=== PATIENT | female | born 1960 | race Caucasian/White ===

== ENCOUNTER → 2018-09-01 | Outpatient (REF) | LOC: ZCOL.LAB 12:42 | DX: Z01.89 Encounter for other specified special examinations (principal) ==

== ENCOUNTER → 2018-09-03 | Outpatient (REF) ==
[2018-09-03 12:50] LABS: CALCIUM 9.7 mg/dL (8.4-10.2); CREATININE, serum 0.63 (0.52-1.25); POTASSIUM 3.6 mmol/L (3.4-5.0)
== END ==
LOC: ZCOL.LAB 12:38
PROVIDERS: Family Medicine
DX: M62.81 Muscle weakness (generalized) (principal)

== ENCOUNTER → 2018-09-17 | Outpatient (REF) ==
[~2018-09-17] MED LIST: ARICEPT10 MG PO; ASPIRIN 81M81 MG/TA2 PO; BOOST HIGH PRO240 ML PO; COLACE 100100 MG/CAP PO; DULCOLAX TAB5 MG PO; MAGNESIUM500 MG PO; NAMENDA 10MG TA10 MG PO; NEURONTIN100 MG/CAP PO; REMERON 15M15 MG/TA1 PO; TYLENOL 325MG325 MG PO; ULTRAM 50MG TAB50 MG PO; VITAMIN D31000 I1 PO
[2018-09-17 15:54] LABS: COLLECTION METHOD CLEAN CATCH
[2018-09-17 16:06] LABS: MUCOUS Present /lpf; PH 5 (5-8); SQUAMOUS EPITHELIAL None Seen /hpf; URINE APPEARANCE Clear; URINE BACTERIA None Seen /hpf; URINE BILIRUBIN Negative (NEGATIVE); URINE BLOOD Negative (NEGATIVE); URINE COLOR Amber; URINE GLUCOSE Negative (NEGATIVE); URINE KETONE Negative (NEGATIVE); URINE LEUKOCYTE ESTERASE Negative (NEGATIVE); URINE NITRATE Negative (NEGATIVE); URINE PROTEIN(semi-quant) Negative (NEGATIVE); URINE RBC 0-2 /hpf; URINE UROBILINOGEN Negative (NEGATIVE)
== END ==
LOC: ZCOL.LAB 15:53
PROVIDERS: Family Medicine
DX: R63.4 Abnormal weight loss (principal)

== ENCOUNTER → 2018-09-17 | Outpatient (REF) ==
[2018-09-17 13:00] LABS: BASO % 0.3 % (0.0-2.0); EOS % 0.8 % (0-4.0); GRAN # 2.6 (1.4-6.5); GRAN % 66.9 % (42.2-75.2); HEMATOCRIT 37.1 % (37.0-47.0); HEMOGLOBIN 13.9 g/dl (12.5-16.0); LYMPH # 0.9 (1.2-3.4); LYMPH % 23.9 % (20.0-51.0); MEAN CELL VOLUME 100 fl (80.0-100.0); MEAN CORPUSCULAR HEMOGLOBIN 37 pg (27.0-31.0); MEAN CORPUSCULAR HGB CONC 38 g/dl (33.0-37.0); MEAN PLATELET VOLUME 11.7 fl (7.4-10.4); MONO # 0.3 (0.1-0.6); MONO % 7.6 % (1.7-9.3); PLATELET COUNT 139 K/mm3 (130-400); RED BLOOD COUNT 3.72 M/mm3 (4.10-5.30); REDCELL DISTRIBUTION WIDTH-CV 14.9 % (11.5-14.5)
[2018-09-17 13:11] LABS: ALBUMIN 3.7 gm/dL (3.5-5.0); BILIRUBIN,TOTAL 0.6 mg/dL (0.0-1.0); CALCIUM 9.7 mg/dL (8.4-10.2); CREATININE, serum 0.6 (0.52-1.25); POTASSIUM 3.5 mmol/L (3.4-5.0)
[2018-09-17 13:40] LABS: THYROID STIMULATING HORMONE 0.757 uIU/mL (0.465-4.680)
== END ==
LOC: ZLAB.STJ 12:53
PROVIDERS: Family Medicine
DX: R62.7 Adult failure to thrive (principal)

== ENCOUNTER 2018-09-20 17:02 | Inpatient (IN) | payer OTHER ==
[2018-09-20] VITALS (114 sets, daily range): O2SAT 78–98
[~2018-09-20] VITALS: Ht 165.1 cm; Wt 59.7 kg
[2018-09-20 17:38] LABS: ARTERIAL BLD GAS O2 SATURATION 85.4 % (92-100); ARTERIAL BLD GAS TCO2 CT 23.7; ARTERIAL BLOOD GAS BASE EXCESS 2.1 (-2-2); ARTERIAL BLOOD GAS HCO3 22.9 meq/L (22-26); ARTERIAL BLOOD GAS PCO2 26.5 mmHg (35-45); ARTERIAL BLOOD GAS pH 7.56 (7.35-7.45)
[2018-09-20 17:54] LABS: BASO % 0.2 % (0.0-2.0); GRAN # 3.8 (1.4-6.5); GRAN % 77.5 % (42.2-75.2); HEMATOCRIT 42.7 % (37.0-47.0); HEMOGLOBIN 14.5 g/dl (12.5-16.0); LYMPH # 0.9 (1.2-3.4); LYMPH % 17.6 % (20.0-51.0); MEAN CELL VOLUME 99 fl (80.0-100.0); MEAN CORPUSCULAR HEMOGLOBIN 34 pg (27.0-31.0); MEAN CORPUSCULAR HGB CONC 34 g/dl (33.0-37.0); MEAN PLATELET VOLUME 12.2 fl (7.4-10.4); MONO # 0.2 (0.1-0.6); MONO % 4.3 % (1.7-9.3); PLATELET COUNT 121 K/mm3 (130-400); RED BLOOD COUNT 4.31 M/mm3 (4.10-5.30); REDCELL DISTRIBUTION WIDTH-CV 14.6 % (11.5-14.5)
[2018-09-20 18:01] LABS: COLLECTION METHOD CATHETER
[2018-09-20 18:07] LABS: INR 1.1 (0.8-3.0); PROTHROMBIN TIME 12.7 SECONDS (9.7-12.8)
[2018-09-20 18:09] LABS: ALANINE AMINOTRANSFERASE 12 U/L (9-52); ALBUMIN 3.8 gm/dL (3.5-5.0); ALKALINE PHOSPHATASE 111 U/L (50-136); ANION GAP 11 mmol/L (7-16); AST,SGOT 35 U/L (15-37); BILIRUBIN,TOTAL 1.1 mg/dL (0.0-1.0); BLOOD UREA NITROGEN 30 mg/dL (7-17); CALCIUM 10.1 mg/dL (8.4-10.2); CARBON DIOXIDE 26 mmol/L (22-30); CHLORIDE 114 mmol/L (98-107); CREATININE, serum 0.78 (0.52-1.25); GLUCOSE 127 mg/dL (74-106); LIPASE 42 U/L (23-300); POTASSIUM 3.6 mmol/L (3.4-5.0); SODIUM 150 mmol/L (137-145); TOTAL PROTEIN 8.4 gm/dL (6.4-8.2)
[2018-09-20 18:10] LABS: PARTIAL THROMBOPLASTIN TIME 36.6 SECONDS (26.0-37.0)
[2018-09-20 18:12] LABS: MUCOUS Present /lpf; PH 5 (5-8); SQUAMOUS EPITHELIAL 0-2 /hpf; URINE APPEARANCE Hazy; URINE BACTERIA None Seen /hpf; URINE BILIRUBIN Negative (NEGATIVE); URINE BLOOD Negative (NEGATIVE); URINE COLOR Amber; URINE GLUCOSE Negative (NEGATIVE); URINE KETONE Negative (NEGATIVE); URINE LEUKOCYTE ESTERASE Negative (NEGATIVE); URINE NITRATE Negative (NEGATIVE); URINE PROTEIN(semi-quant) Negative (NEGATIVE); URINE RBC 0-2 /hpf; URINE UROBILINOGEN Negative (NEGATIVE)
[2018-09-20 18:13] LABS: CREATINE KINASE < 20 U/L (30-135); LACTIC ACID 3.8 mmol/L (0.4-2.0)
[2018-09-20 18:27] LABS: TROPONIN-I < 0.012 ng/mL (0.000-0.035)
[2018-09-20 18:44] LABS: C-REACTIVE PROTEIN 20.7 mg/dL (0.0-0.9)
--- NOTE | 2018-09-20 19:43 | NUR ---
ANDREW Herrera in the ED calls report at this time. Patient will be brought over after CT scan results.
[2018-09-20] MEDS ORDERED: MAGNESIUM500 MG PO (19:56)
[2018-09-20] MEDS ORDERED: ULTRAM 50MG TAB50 MG PO (19:57)
[2018-09-20] MEDS ORDERED: ASPIRIN 81M81 MG/TA2 PO (19:57)
[2018-09-20] MEDS ORDERED: NAMENDA 10MG TA10 MG PO (19:57)
--- NOTE | 2018-09-20 20:13 | NUR ---
Patient arrives at this time via stretcher with transport vent. transferred to unit bed via slide. attached to monitoring equipment. Assessment complete. Reveals clear upper lobes with fine crackles in the bases as well as being diminished. There is a unstagable pressure ulcer on her coccyx. It is black with some peeling skin. The surrounding tissue is blanchable. There are also 3 dime sized holes in the coccygeal area below the unstagable ulcer stages are stage 2/3. It is unclear due to their small size. Patient is very pale looking and skin is dry. Urine is a dark daniella color. Patient has a large impacted stool that this nurse removed without incident. Cleaned with cleansing wipes. Positioned patient in bed and provided blankets for comfort. No further needs at this time. Family will be updated on status.
--- NOTE | 2018-09-20 21:35 | NUR ---
Time out performed at this time with Dr. Hernandez and Desmond, RT. 2137- Bronchoscopy begins at this time. Patient on 3min vital signs. 2138- Veceronium given 2139 - Bronch scope inserted into patient. vitals remain stable, heart rate is elevated. 2144 - Bronch ends at this time and scope is removed without incident.
--- NOTE | 2018-09-20 21:49 | NUR ---
Time out performed with this nurse and Dr Hernandez. 2149 - propofol given. patient continues on 3min vital signs. 2150 - Insertion of central line catheter procedure begins. 2199 - procedure ends, unsuccessful in insertion of subclavian line. 2201 - Dr Marquez notified by Dr Hernandez to come and try a central line.
--- NOTE | 2018-09-20 22:40 | NUR ---
Time out performed with this nurse and Dr. Marquez. 2243 - procedure begins at this time to attempt left femoral line . Patient on 3min vital signs. 2300 - unsuccessful at left femoral site, moves to right femoral 2313 - right femoral line complete at this time. Patient tolerated well, vitals remain stable.
[2018-09-21] VITALS (779 sets, daily range): BP systolic 76–122; BP diastolic 53–78; PULSE 81–121; TEMP 97.4–97.9; O2SAT 83–100
--- NOTE | 2018-09-21 | NUR ---
Assessment complete at this time. Patient resting comfortably on the vent. She still is only resposive to pain. Assessment remains the same as previous. Vitals are becoming hypotensive slowly. Will closely monitor vital signs. No further needs at this time. Family has moved out to the waiting room. Will continue to monitor. Call light within reach.
[2018-09-21 00:17] LABS: ARTERIAL BLD GAS O2 SATURATION 95.1 % (92-100); ARTERIAL BLD GAS TCO2 CT 21.6; ARTERIAL BLOOD GAS BASE EXCESS -3.5 (-2-2); ARTERIAL BLOOD GAS HCO3 20.6 meq/L (22-26); ARTERIAL BLOOD GAS PCO2 34.6 mmHg (35-45); ARTERIAL BLOOD GAS pH 7.39 (7.35-7.45)
[2018-09-21 00:32] LABS: ANION GAP 8 mmol/L (7-16); BLOOD UREA NITROGEN 27 mg/dL (7-17); CARBON DIOXIDE 22 mmol/L (22-30); CHLORIDE 119 mmol/L (98-107); CREATININE, serum 0.66 (0.52-1.25); GLUCOSE 137 mg/dL (74-106); SODIUM 150 mmol/L (137-145)
[2018-09-21 00:44] LABS: TROPONIN-I 3 HR POST INITIAL < 0.012 ng/mL (0.000-0.034)
--- NOTE | 2018-09-21 04:00 | NUR ---
Assessment complete. No changes from previous exam. Patient remains responsive to pain. Patient's BP improves with fluids. She appears comfortable. Will continue to closely watch pressures. No further needs at this time.
[2018-09-21 05:33] LABS: MEAN CELL VOLUME 99 fl (80.0-100.0); MEAN CORPUSCULAR HGB CONC 31 g/dl (33.0-37.0); MEAN PLATELET VOLUME 13.1 fl (7.4-10.4); PLATELET COUNT 71 K/mm3 (130-400); RED BLOOD COUNT 3.59 M/mm3 (4.10-5.30); REDCELL DISTRIBUTION WIDTH-CV 14.6 % (11.5-14.5)
[2018-09-21 05:42] LABS: HEMATOCRIT 35.6 % (37.0-47.0); HEMOGLOBIN 10.9 g/dl (12.5-16.0); MEAN CORPUSCULAR HEMOGLOBIN 30 pg (27.0-31.0)
[2018-09-21 05:49] LABS: ALBUMIN 2.3 gm/dL (3.5-5.0); BILIRUBIN,TOTAL 1.2 mg/dL (0.0-1.0); CALCIUM 8.3 mg/dL (8.4-10.2); CREATININE, serum 0.59 (0.52-1.25); MAGNESIUM 1.9 mg/dL (1.6-2.3); PHOSPHOROUS 3.3 mg/dL (2.5-4.5); TOTAL PROTEIN 5.4 gm/dL (6.4-8.2)
[2018-09-21 05:57] LABS: POTASSIUM 2.9 mmol/L (3.4-5.0)
[2018-09-21 06:02] LABS: ARTERIAL BLD GAS O2 SATURATION 98.9 % (92-100); ARTERIAL BLD GAS TCO2 CT 19.8; ARTERIAL BLOOD GAS HCO3 18.9 meq/L (22-26); ARTERIAL BLOOD GAS PCO2 30.9 mmHg (35-45)
[2018-09-21 06:03] LABS: ARTERIAL BLOOD GAS PO2 317.3 mmHg (80-100)
--- NOTE | 2018-09-21 06:24 | NUR ---
PT NOT ON SMART CARE NOT INTUBATED FOR 24 HOURS
[2018-09-21 07:10] LABS: BAND 70 % (0-10); LYMPHOCYTE 20 % (20.0-51.0); METAMYELOCYTE 2 % (0-0); NEUTROPHILS 4 % (42.0-75.2)
[2018-09-21 07:11] LABS: PLATELET ESTIMATE DECREASED (NORMAL); ROULEAUX 1+
--- NOTE | 2018-09-21 07:40 | NUR ---
Bedside report given to ANDREW Meléndez. All lines and medications reviewed. Plan of care discussed. Transfer of care at this time.
--- NOTE | 2018-09-21 09:24 | NUR ---
Admission assessment complete at this time. Plan of care reviewed with family. vitals stable. Pt shows no signs of pain or discomfort. Bed in low position, Will continue to monitor.
[2018-09-21] MEDS ORDERED: VITAMIN D31000 I1 PO (10:14)
[2018-09-21] MEDS ORDERED: ARICEPT10 MG PO (10:16)
[2018-09-21] MEDS ORDERED: COLACE 100100 MG/CAP PO (10:16)
[2018-09-21] MEDS ORDERED: BOOST HIGH PRO240 ML PO (10:17)
[2018-09-21] MEDS ORDERED: NEURONTIN100 MG/CAP PO (10:18)
[2018-09-21] MEDS ORDERED: REMERON 15M15 MG/TA1 PO (10:18)
[2018-09-21] MEDS ORDERED: TYLENOL 325MG325 MG PO (10:19)
[2018-09-21] MEDS ORDERED: DULCOLAX TAB5 MG PO (10:20)
[2018-09-21 11:08] LABS: HEMOGLOBIN 10.2 g/dl (12.5-16.0); MEAN CELL VOLUME 99 fl (80.0-100.0); MEAN CORPUSCULAR HEMOGLOBIN 30 pg (27.0-31.0); MEAN CORPUSCULAR HGB CONC 31 g/dl (33.0-37.0); MEAN PLATELET VOLUME 13.3 fl (7.4-10.4); PLATELET COUNT 62 K/mm3 (130-400); RED BLOOD COUNT 3.36 M/mm3 (4.10-5.30); REDCELL DISTRIBUTION WIDTH-CV 14.7 % (11.5-14.5)
[2018-09-21 11:17] LABS: HEMATOCRIT 33.1 % (37.0-47.0)
[2018-09-21 11:23] LABS: CALCIUM 8.1 mg/dL (8.4-10.2); CREATININE, serum 0.55 (0.52-1.25); MAGNESIUM 1.8 mg/dL (1.6-2.3); POTASSIUM 3.7 mmol/L (3.4-5.0)
--- NOTE | 2018-09-21 12:00 | NUR ---
Shift reassessment complete at this time. No changes from previous assessment. Vitals stable. Pt arouses to voice and movement. Unable to follow direction or track with eyes. Pt appears to be pain free with no signs of pain noted. Will continue to monitor.
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
--- NOTE | 2018-09-21 16:00 | NUR ---
Shift reassessment complete at this time. No changes from previous assessment. Vitals stable. No signs of pain or discomfort noted. Pt awakes to voice and movement, however, unable to follow commands or direction. Will continue to monitor. Bed in low position, call light within reach, bed alarm on.
--- NOTE | 2018-09-21 17:00 | NUR ---
No change in sedation made for sedation vacation. Pt awakens to voice at current lowest possible setting of sedation. Will continue to monitor.
[2018-09-21 17:05] LABS: ARTERIAL BLD GAS O2 SATURATION 95.9 % (92-100); ARTERIAL BLD GAS TCO2 CT 15.9; ARTERIAL BLOOD GAS BASE EXCESS -7.1 (-2-2); ARTERIAL BLOOD GAS HCO3 15.3 meq/L (22-26); ARTERIAL BLOOD GAS PCO2 22.4 mmHg (35-45); ARTERIAL BLOOD GAS PO2 84.9 mmHg (80-100); ARTERIAL BLOOD GAS pH 7.45 (7.35-7.45)
--- NOTE | 2018-09-21 19:32 | NUR ---
Bedside report given to ANDREW Remy.
[2018-09-21 22:05] LABS: CALCIUM 8.4 mg/dL (8.4-10.2); CREATININE, serum 0.51 (0.52-1.25)
[2018-09-21 22:18] LABS: POTASSIUM 2.7 mmol/L (3.4-5.0)
[2018-09-22] VITALS (697 sets, daily range): BP systolic 100–114; BP diastolic 62–73; PULSE 92–109; TEMP 97.6–98.7; O2SAT 94–100
--- NOTE | 2018-09-22 02:55 | NUR ---
Pt resting in bed, has not opened eyes, withdraws and grimaces to pain with all four extremeties. Despite pt unresposiveness, HR and and RR continues to increase, Staff has been in communication with eICU regarding, potential pain, lovenox admin, restrain orders, CVP lvl and updates re labs. Orders recieved. K noted to be 2.7 and orders placed to replace per protocol. Pt to recieved 80mEqs. Will recheck after last dose and continue to monitor and update, providers as needed.
--- NOTE | 2018-09-22 03:00 | NUR ---
Due pt unresponsiveness sedation vaction done at this time, eICU updated fro HR and RR despite pain med, but agrees that baseline should be established. Will continue to monitor pt and update providers as needed.
[2018-09-22 05:22] LABS: ARTERIAL BLD GAS O2 SATURATION 97.1 % (92-100); ARTERIAL BLD GAS TCO2 CT 16.5; ARTERIAL BLOOD GAS BASE EXCESS -5.8 (-2-2); ARTERIAL BLOOD GAS HCO3 15.9 meq/L (22-26); ARTERIAL BLOOD GAS PO2 100.8 mmHg (80-100)
[2018-09-22 05:25] LABS: ARTERIAL BLOOD GAS PCO2 20.7 mmHg (35-45)
[2018-09-22 06:05] LABS: HEMOGLOBIN 10.3 g/dl (12.5-16.0); MEAN CELL VOLUME 96 fl (80.0-100.0); MEAN CORPUSCULAR HEMOGLOBIN 30 pg (27.0-31.0); MEAN CORPUSCULAR HGB CONC 32 g/dl (33.0-37.0); MEAN PLATELET VOLUME 12.9 fl (7.4-10.4); PLATELET COUNT 81 K/mm3 (130-400); RED BLOOD COUNT 3.41 M/mm3 (4.10-5.30); REDCELL DISTRIBUTION WIDTH-CV 14.6 % (11.5-14.5)
[2018-09-22 06:06] LABS: HEMATOCRIT 32.6 % (37.0-47.0)
[2018-09-22 06:16] LABS: ALBUMIN 2.3 gm/dL (3.5-5.0); BILIRUBIN,TOTAL 0.9 mg/dL (0.0-1.0); CALCIUM 8.6 mg/dL (8.4-10.2); CREATININE, serum 0.52 (0.52-1.25); MAGNESIUM 1.9 mg/dL (1.6-2.3); POTASSIUM 3.5 mmol/L (3.4-5.0); TOTAL PROTEIN 5.6 gm/dL (6.4-8.2)
--- NOTE | 2018-09-22 06:42 | NUR ---
PT NOT ON SMART CARE DUE TO HEART RATE BEING HIGH. WILL NOT BE EXTUBATED AND IS ON DOCUMENTED VENT SETTINGS.
[2018-09-22 07:12] LABS: BAND 16 % (0-10); LYMPHOCYTE 7 % (20.0-51.0); NEUTROPHILS 74 % (42.0-75.2); PLATELET ESTIMATE DECREASED (NORMAL)
--- NOTE | 2018-09-22 08:00 | NUR ---
Shift assessment complete at this time. Unable to review plan of care with Pt r/t intubation et sedation, family currently not present. Vitals stable. Pt unable to follow commands or open eyes to voice. Responds to physical stimuli and grimces when Pt's name is called. Pt is currently over-breathing the ventilator. No signs of pain or discomfort noted. Will continue to monitor.
--- NOTE | 2018-09-22 12:00 | NUR ---
Shift reassessment completed at this time. No changes from previous assessment. Vitals stable at this time. Pt still not responding to verbal stimuli and only responds to physical stimulation. Pt is still overbreathing the ventilator. Pt no longer appears to be in pain after previous administration of PRN Fentanyl. Will continue to monitor.
--- NOTE | 2018-09-22 16:00 | NUR ---
Shift reassessment complete at this time. No changes from previous assessment noted. Pt unable to follow commands on ventilator and opens eyes to movement or painful stimuli. Pt overbreathing ventilator. Vitals stable. Fentanyl PRN push administered for CPOT signs of pain. See EMAR for documentation. Bed in low position. Christian Tompkins at bedside with Pt. Will continue to monitor.
--- NOTE | 2018-09-22 19:00 | NUR ---
Bedside report received from Medhat MROALES. Pts son entered the room half way through report. Denies any questions.
[2018-09-22 19:02] LABS: CALCIUM 8.3 mg/dL (8.4-10.2); CREATININE, serum 0.5 (0.52-1.25); POTASSIUM 3.1 mmol/L (3.4-5.0)
--- NOTE | 2018-09-22 19:19 | NUR ---
Bedside report given to ANDREW Craven.
--- NOTE | 2018-09-22 20:30 | NUR ---
This nurse and pts son, Turner, at bedside were discussing pt care when family member noted pts right eye open. Pt would not follow commands at this time, and did not open left eye. No pt eye contact was made with family member or nurse at this time. Pt was noted shortly following to close eyes. Son grabbed pts right hand and asked the pt to squeeze. Son reported pt slightly squeezed hand in response.
--- NOTE | 2018-09-22 23:00 | NUR ---
Pt CVP was below the recommendation per Dr. Hernandez. 500mL bolus of NS provided with improvement in CVP readings as a result. Lung sounds remain CTA.
[2018-09-23] VITALS (598 sets, daily range): BP systolic 109–135; BP diastolic 68–84; PULSE 80–96; TEMP 97.6–98.9; O2SAT 93–100
--- NOTE | 2018-09-23 00:30 | NUR ---
Bilateral heel protectors applied to pts feet at this time. Slight bilateral foot drop noted.
--- NOTE | 2018-09-23 01:45 | NUR ---
Residuals checked from OG tube tube feedings. >250 noted, tube feeds turned off at this time per dietary order.
--- NOTE | 2018-09-23 04:00 | NUR ---
Pt CVP was 6 at prior assessment, 500mL NS bolus provided with increase in CVP results >8. Pt lung sounds remain clear. Residual from prior tube feed residuals are at 120. Tube feeds returned to 46mL/hr.
[2018-09-23 04:40] LABS: ARTERIAL BLD GAS O2 SATURATION 96.7 % (92-100); ARTERIAL BLOOD GAS BASE EXCESS -4.7 (-2-2); ARTERIAL BLOOD GAS HCO3 17.3 meq/L (22-26); ARTERIAL BLOOD GAS PCO2 23.3 mmHg (35-45); ARTERIAL BLOOD GAS PO2 95.3 mmHg (80-100); ARTERIAL BLOOD GAS pH 7.49 (7.35-7.45)
--- NOTE | 2018-09-23 04:57 | NUR ---
PT NOT PUT ON SMART CARE DUE TO HAVING A BRONCH TODAY AT 0830 AND WILL STILL BE INTUBATED AT THE TIME OF THE PROCEDURE. PT IS STABLE AND NO DISTRSS NOTED AT THIS TIME. [facility] CALLED WITH ABG RESULTS WILL BE NOTIFIED IF ANY CHANGES ARE WANTING TO BE MADE.
[2018-09-23 05:04] LABS: MEAN CELL VOLUME 97 fl (80.0-100.0); MEAN CORPUSCULAR HGB CONC 32 g/dl (33.0-37.0); MEAN PLATELET VOLUME 12.5 fl (7.4-10.4); PLATELET COUNT 77 K/mm3 (130-400); RED BLOOD COUNT 2.97 M/mm3 (4.10-5.30)
[2018-09-23 05:16] LABS: HEMATOCRIT 28.7 % (37.0-47.0); HEMOGLOBIN 9.1 g/dl (12.5-16.0); MEAN CORPUSCULAR HEMOGLOBIN 31 pg (27.0-31.0)
[2018-09-23 05:17] LABS: ALBUMIN 2.1 gm/dL (3.5-5.0); BILIRUBIN,TOTAL 0.7 mg/dL (0.0-1.0); CALCIUM 8.4 mg/dL (8.4-10.2); CREATININE, serum 0.42 (0.52-1.25); MAGNESIUM 2.1 mg/dL (1.6-2.3); PHOSPHOROUS 1.6 mg/dL (2.5-4.5); POTASSIUM 3.5 mmol/L (3.4-5.0); TOTAL PROTEIN 5.2 gm/dL (6.4-8.2)
[2018-09-23 06:05] LABS: BAND 35 % (0-10); LYMPHOCYTE 4 % (20.0-51.0); NEUTROPHILS 53 % (42.0-75.2); PLATELET ESTIMATE DECREASED (NORMAL)
[2018-09-23 06:06] LABS: BURR CELLS 2+; HYPOCHROMIA 1+
[2018-09-23 06:07] LABS: OVALOCYTES 1+
--- NOTE | 2018-09-23 07:00 | NUR ---
Bedside report provided to Lisa Pineda RN. Pt resting in bed at this time.
--- NOTE | 2018-09-23 07:05 | NUR ---
Bedside report received from ANDREW Craven.
--- NOTE | 2018-09-23 08:05 | NUR ---
Assessment complete, patient does not awaken or follow commands, does open mouth when doing oral care. AM care complete, bilateral wrist restraints in place.
--- NOTE | 2018-09-23 08:35 | NUR ---
Dr. Hernandez here for bronch at bedside, orders to give 50 mcg IV Fentanyl prior to bronch. Bronch team here.
--- NOTE | 2018-09-23 09:45 | NUR ---
Dr. Coy here to speak with son, Turner.
--- NOTE | 2018-09-23 13:30 | NUR ---
Patient tachypneic on ventilator, IV fentanyl push given as ordered.
--- NOTE | 2018-09-23 17:00 | NUR ---
Sedation Vacation- Patient not on any sedation gtts.
--- NOTE | 2018-09-23 17:29 | NUR ---
PT PLACED ON SMART CARE AT 1134 PS 10 PEEP+5. AT 1416 VENT SAID CONSIDER SEPERATION. PT WENT UNTIL THIS TIME. AT THIS TIME RR WAS INCREASED AND PT LOOKED LABORED. VITAL SIGNS STABLE. DR. ALONSO ORDERED THE TRIAL
--- NOTE | 2018-09-23 19:10 | NUR ---
Pt report received from Lisa Pineda RN. Pt resting in bed. Oncoming and off going nurses talking with pt son at this time. Left foot twitching noted. Pt son holding pts right hand with reported twitching and intermittent movements of contraction around family members hand. Upper chest movements consistent with tremors noted for a few seconds following assessment of pts bottom.
--- NOTE | 2018-09-23 19:13 | NUR ---
Bedside report given to ANDREW Craven.
[2018-09-24] VITALS (1094 sets, daily range): BP systolic 118–137; BP diastolic 69–91; PULSE 74–88; TEMP 97.8–99.1; O2SAT 87–100
--- NOTE | 2018-09-24 01:00 | NUR ---
Complete bed bath with lower extremity lotion provided to patient with linen change. Slight ROM to lower extremities noted with increased facial grimacing noted with movement on the left leg. Pt was noted to open one eye to physical stimulation. No eye contact was made with staff and continuation of not following any commands.
--- NOTE | 2018-09-24 04:00 | NUR ---
During assessment pts name was verbalized from the nurse prior to physical stimulation. Pt opened left eye at this time. Pt did not follow any commands or make any eye contact. Leftward gaze noted to the open eye. Pt only kept eye open for a matter of a couple of seconds and then closed eyes tight.
[2018-09-24 05:54] LABS: MEAN CELL VOLUME 97 fl (80.0-100.0); MEAN CORPUSCULAR HGB CONC 32 g/dl (33.0-37.0); MEAN PLATELET VOLUME 12.6 fl (7.4-10.4); PLATELET COUNT 74 K/mm3 (130-400); RED BLOOD COUNT 3.04 M/mm3 (4.10-5.30); REDCELL DISTRIBUTION WIDTH-CV 15.1 % (11.5-14.5)
[2018-09-24 05:56] LABS: HEMATOCRIT 29.5 % (37.0-47.0); HEMOGLOBIN 9.3 g/dl (12.5-16.0); MEAN CORPUSCULAR HEMOGLOBIN 31 pg (27.0-31.0)
[2018-09-24 06:08] LABS: ALBUMIN 2.1 gm/dL (3.5-5.0); BILIRUBIN,TOTAL 0.5 mg/dL (0.0-1.0); CALCIUM 8.4 mg/dL (8.4-10.2); CREATININE, serum 0.42 (0.52-1.25); MAGNESIUM 2.1 mg/dL (1.6-2.3); PHOSPHOROUS 2.9 mg/dL (2.5-4.5); POTASSIUM 3.3 mmol/L (3.4-5.0); TOTAL PROTEIN 5.2 gm/dL (6.4-8.2)
[2018-09-24 06:36] LABS: ARTERIAL BLD GAS O2 SATURATION 97.4 % (92-100); ARTERIAL BLOOD GAS BASE EXCESS -3.6 (-2-2); ARTERIAL BLOOD GAS HCO3 18.3 meq/L (22-26); ARTERIAL BLOOD GAS PCO2 22.2 mmHg (35-45); ARTERIAL BLOOD GAS pH 7.54 (7.35-7.45)
[2018-09-24 06:37] LABS: BAND 3 % (0-10); LYMPHOCYTE 8 % (20.0-51.0); NEUTROPHILS 86 % (42.0-75.2); NUCLEATED RED BLOOD CELL 2 (0-6); PLATELET ESTIMATE DECREASED (NORMAL)
--- NOTE | 2018-09-24 07:10 | NUR ---
Report recieved from Merissa MORALES. Patient non verbal, no arousal except from pain. Medications verified.
--- NOTE | 2018-09-24 07:10 | NUR ---
Report provided to Joann Garner RN.
--- NOTE | 2018-09-24 15:49 | NUR ---
Asks RN to be put back on the vent, "I feel nervous" VSS. Spoke with patient at length, has a lot of anxiety about his breathing and the trach. Also states not sleeping. Will sleep with doctors about meds for sleep and restarting Prozac since ok'd for oral intake.
--- NOTE | 2018-09-24 16:14 | NUR ---
CL from right femoral removed by Itz SINGH. Area cleanse prior with cholrprep and alcohol. Sutures removed and pressure held times 3 minutes. No bleeding noted. Pressure dressing applied. Patient tolerated procedure well.
[2018-09-24 16:32] LABS: ALK PHOS ISOENZYME XXX; ALK PHOS ISOENZYME - TOTAL XXX
--- NOTE | 2018-09-24 19:10 | NUR ---
Bedside report given to Anthony MORALES. Daughter in law at bedside and participates in report. Patient repositioned and pericare done. Dressings assessed with oncoming nurse.
--- NOTE | 2018-09-24 20:10 | NUR ---
Patient assessment completed and charted at this time, please see documentation for details. Patient tolerating ventilator well at this time, minimal interaction with nurse. Family at bedside, no questions at this time. Will continue to monitor.
[2018-09-25] VITALS (586 sets, daily range): BP systolic 93–160; BP diastolic 69–104; PULSE 86–128; TEMP 97.9–99; O2SAT 91–100
[2018-09-25 05:32] LABS: MEAN CELL VOLUME 95 fl (80.0-100.0); MEAN CORPUSCULAR HGB CONC 32 g/dl (33.0-37.0); MEAN PLATELET VOLUME 11.3 fl (7.4-10.4); PLATELET COUNT 61 K/mm3 (130-400); RED BLOOD COUNT 3.08 M/mm3 (4.10-5.30); REDCELL DISTRIBUTION WIDTH-CV 14.8 % (11.5-14.5)
[2018-09-25 05:33] LABS: HEMATOCRIT 29.3 % (37.0-47.0); HEMOGLOBIN 9.3 g/dl (12.5-16.0); MEAN CORPUSCULAR HEMOGLOBIN 30 pg (27.0-31.0)
[2018-09-25 05:44] LABS: ALBUMIN 2.2 gm/dL (3.5-5.0); BILIRUBIN,TOTAL 0.4 mg/dL (0.0-1.0); CALCIUM 8.5 mg/dL (8.4-10.2); CREATININE, serum 0.42 (0.52-1.25); PHOSPHOROUS 3.2 mg/dL (2.5-4.5); POTASSIUM 3.3 mmol/L (3.4-5.0); TOTAL PROTEIN 5.2 gm/dL (6.4-8.2)
[2018-09-25 06:01] LABS: ARTERIAL BLD GAS O2 SATURATION 97.5 % (92-100); ARTERIAL BLD GAS TCO2 CT 16.3; ARTERIAL BLOOD GAS BASE EXCESS -5.6 (-2-2); ARTERIAL BLOOD GAS HCO3 15.7 meq/L (22-26); ARTERIAL BLOOD GAS PO2 117.6 mmHg (80-100); ARTERIAL BLOOD GAS pH 7.51 (7.35-7.45)
[2018-09-25 06:07] LABS: BAND 15 % (0-10); EOSINOPHIL 3 % (0-4); HYPOCHROMIA 1+; LYMPHOCYTE 13 % (20.0-51.0); METAMYELOCYTE 6 % (0-0); NEUTROPHILS 58 % (42.0-75.2); NUCLEATED RED BLOOD CELL 1 (0-6); PLATELET ESTIMATE DECREASED (NORMAL)
[2018-09-25 06:09] LABS: OVALOCYTES 1+; TEAR DROP CELLS 1+
[2018-09-25 06:11] LABS: SCHISTOCYTES 1+
--- NOTE | 2018-09-25 07:25 | NUR ---
Bedside report received from ANDREW Cruz.
[2018-09-25 08:27] LABS: PATHOLOGY DIFF REVIEW OK
--- NOTE | 2018-09-25 10:50 | NUR ---
Patient tachycardic, tachypneic and hypertensive. Patient appears uncomfortable. Versed gtt initiated.
--- NOTE | 2018-09-25 12:07 | NUR ---
US tech at bedside for abdominal US.
--- NOTE | 2018-09-25 13:25 | NUR ---
Family mtg with Nevaeh Sanchez RN (palliative care) and Kimberly social work with DIL. Biju
[2018-09-25 13:45] LABS: IRON,SERUM 32 ug/dL (35-150)
[2018-09-25 13:54] LABS: TOTAL IRON BINDING CAPACITY 174 ug/dL (265-497)
[2018-09-25 14:21] LABS: FERRITIN 695 ng/mL (11-264)
--- NOTE | 2018-09-25 14:47 | NUR ---
Patient remains tachycardic, respirations 30, fentanyl gtt initiated for patient comfort.
--- NOTE | 2018-09-25 15:02 | NUR ---
Long meeting with daughter in law to discuss goals of care for Esther. Family is under tremendous stress--financial/career/education/family conflict/ care of children. DIL states she will talk with Turner alone first as she is seeing that Esther may or may not make a recovery and the demands that this will place on all of them. Support provided to Michelle about the multiple stressors, recognition of desire for the best outcome and yet realization that this may not occur. Will plan to meet again on Friday.
--- NOTE | 2018-09-25 15:14 | NUR ---
MIKE, MIKE student, nurse, pallative care nurse, doctor, and patient's daughter in law, Chalino, met to discuss care goals for patient. After long discussion and hearing from the doctor, Chalino reports she needs to speak with Turner, patient's son, about the possibility of patient not making a recovery. Chalino would also like to see the results of the biopsy and other tests that have been done. MIKE will follow up with Chalino and Turner on Friday.
--- NOTE | 2018-09-25 15:48 | NUR ---
SW student faxed updates to [facility]eles[facility] at [facility].
--- NOTE | 2018-09-25 16:00 | NUR ---
Patient opens eyes but not on command, does not follow commands, Biju, DIL at bedside. Patient repositioned, incontinent of bowel with each turn.
[2018-09-25 17:31] LABS: CALCIUM 8.6 mg/dL (8.4-10.2); CREATININE, serum 0.43 (0.52-1.25); POTASSIUM 3.5 mmol/L (3.4-5.0)
--- NOTE | 2018-09-25 19:36 | NUR ---
Bedside report given to ANDREW Wallis. Incontinent care given, dressing changed. DIL at bedside.
--- NOTE | 2018-09-25 19:40 | NUR ---
Bedside report received from ANDREW Gonzalez. Incontinence care provided. All lines and medications reviewed. Transfer of care at this time.
--- NOTE | 2018-09-25 20:00 | NUR ---
Assessment complete. Patient appears to be resting comfortably on the vent. No signs of distress. Patient's daughter in law at the bedside. Patient has pitting edema in her upper and lower extremities. She is tachycardic with normal heart sounds. Patient is having a moderate to small amount of productive sputum when suctioned. Patient scrunches up face when being suctioned and opens her eyes intermittently and when she is moved. Patient does not appear to be in any pain. Will continue to monitor. Call light within reach.
[2018-09-25 22:28] LABS: FOLATE (FOLIC ACID) 8.1 ng/mL (7.0-31.4)
[2018-09-26] VITALS (927 sets, daily range): BP systolic 94–129; BP diastolic 61–82; PULSE 92–100; TEMP 97.3–98.7; O2SAT 49–100
--- NOTE | 2018-09-26 | NUR ---
Patient resting in bed on the ventilator. No signs of distress or pain. Patient opens her eyes to noise in the room, but does not track movement or follow commands. No changes from previous exam. Vitals remain stable. Will continue to monitor. Call light within reach.
--- NOTE | 2018-09-26 04:00 | NUR ---
Assessment complete. Patient is a little bit more responsive than she has been throughout the shift. Still not following commands. No changes from previous exam. Vitals remain stable. No evidence that patient is having any pain. Will continue to monitor. Call light within reach.
[2018-09-26 04:58] LABS: ARTERIAL BLD GAS O2 SATURATION 96.3 % (92-100); ARTERIAL BLD GAS TCO2 CT 19.3; ARTERIAL BLOOD GAS BASE EXCESS -3.4 (-2-2); ARTERIAL BLOOD GAS HCO3 18.5 meq/L (22-26); ARTERIAL BLOOD GAS PCO2 24.1 mmHg (35-45); ARTERIAL BLOOD GAS PO2 89.5 mmHg (80-100)
--- NOTE | 2018-09-26 05:00 | NUR ---
Sedation vacation started at this time. Versed drip dropped to 0 and put on standby.
[2018-09-26 05:21] LABS: MEAN CELL VOLUME 97 fl (80.0-100.0); MEAN CORPUSCULAR HGB CONC 32 g/dl (33.0-37.0); MEAN PLATELET VOLUME 12.1 fl (7.4-10.4); PLATELET COUNT 69 K/mm3 (130-400); RED BLOOD COUNT 2.87 M/mm3 (4.10-5.30)
[2018-09-26 05:23] LABS: HEMATOCRIT 27.7 % (37.0-47.0); HEMOGLOBIN 8.8 g/dl (12.5-16.0); MEAN CORPUSCULAR HEMOGLOBIN 31 pg (27.0-31.0)
[2018-09-26 05:37] LABS: ALBUMIN 2.2 gm/dL (3.5-5.0); BILIRUBIN,TOTAL 0.4 mg/dL (0.0-1.0); CALCIUM 8.2 mg/dL (8.4-10.2); CREATININE, serum 0.43 (0.52-1.25); POTASSIUM 3.3 mmol/L (3.4-5.0); TOTAL PROTEIN 5.2 gm/dL (6.4-8.2)
[2018-09-26 05:52] LABS: BAND 15 % (0-10); EOSINOPHIL 3 % (0-4); LYMPHOCYTE 8 % (20.0-51.0); METAMYELOCYTE 5 % (0-0); NEUTROPHILS 68 % (42.0-75.2)
[2018-09-26 05:53] LABS: ANISOCYTOSIS 1+; HYPOCHROMIA 2+; PLATELET ESTIMATE DECREASED (NORMAL)
[2018-09-26 05:56] LABS: OVALOCYTES 1+; SCHISTOCYTES 1+; TEAR DROP CELLS 1+
[2018-09-26 05:59] LABS: POLYCHROMASIA 1+
--- NOTE | 2018-09-26 07:34 | NUR ---
Report recieved from Kadi MORALES
--- NOTE | 2018-09-26 07:34 | NUR ---
Bedside report given to ANDREW David
--- NOTE | 2018-09-26 07:34 | NUR ---
Versed off at this time.
--- NOTE | 2018-09-26 14:00 | NUR ---
Son and daughter in law here, Dr. Hernandez would like to meet with them in the AM to discuss care from here. Both agree. Talked with them at length about options of care and care beyond hospitalization. All questions answered as able. Feel family very receptive and understanding.
--- NOTE | 2018-09-26 14:50 | NUR ---
Son and daughter in law here speaking with RN. Son request sedation vacation from [facility] to see how patient reacts. Explained events of the morning, but still asks if it can be turned off. This RN explains pro's vs con's and all agree to do sedation vacation at this time, but with the understanding if patient becomes agitated or uncomfortable we will turn medication back on. Versed off at this time.
--- NOTE | 2018-09-26 14:50 | NUR ---
Fentanyl increased to 50 mcg/hr at this time for comfort.
--- NOTE | 2018-09-26 18:07 | NUR ---
Patient noted to have increased tachycardia, tachypnea, and facial grimace. Versed turned back on at this time time for comfort/sedation.
--- NOTE | 2018-09-26 19:40 | NUR ---
Bedside report received from ANDREW David. Incontinence care provided and patient repositioned. Son at bedside. All medications and lines reviewed. Transfer of care at this time.
--- NOTE | 2018-09-26 19:48 | NUR ---
Bedside report given to Kadi MORALES. Son at bedside and updates reviewed
--- NOTE | 2018-09-26 20:00 | NUR ---
Patient resting in bed on the vent at this time with daughter in law at the bedside. Patient does not appear to be in any distress or pain. Assessment complete, reveals coarse lung sounds in the bases as well as being diminished. She is tachypneic at 24bpm, but appears comfortable. Edema is +2 in the upper extremities and lower. External genitalia is also edematous. Patient's dressing on the unstagable ulcer is still intact, Will not change at this time. All other findings WNL. Vitals are stable. Will continue to monitor. Call light within reach.
[2018-09-27] VITALS (1259 sets, daily range): BP systolic 100–118; BP diastolic 61–72; PULSE 90–104; TEMP 98.8–99.1; O2SAT 37–100
--- NOTE | 2018-09-27 | NUR ---
Patient resting on the vent at this time. No signs of distress or pain. Assessment complete. She is more reactive and opens eyes to any noise in the room or touch to her body. Eyes open, but she does not focus or track movement. Is not following commands. Assessment reveals coarse lung sounds in the bases. All other findings remain the same as previous exam. Vitals are stable and WNL. No further needs at this time. Will continue to monitor. Call light within reach.
--- NOTE | 2018-09-27 04:00 | NUR ---
Patient resting on the vent. No signs of pain or distress. As the shift as gone on, patient has become more resposive to noises in the room or saying her name. She still does not follow commands. Patient did provide resistance during her bath by straightening her arm or neck. But no other movement noted in extremities. Assessment complete. No changes from previous exam. Vitals remain stable. Will continue to monitor. Call light within reach.
[2018-09-27 05:42] LABS: ARTERIAL BLD GAS O2 SATURATION 97.3 % (92-100); ARTERIAL BLD GAS TCO2 CT 20.5; ARTERIAL BLOOD GAS BASE EXCESS -2.7 (-2-2); ARTERIAL BLOOD GAS HCO3 19.7 meq/L (22-26); ARTERIAL BLOOD GAS PCO2 26.8 mmHg (35-45); ARTERIAL BLOOD GAS PO2 99.6 mmHg (80-100); ARTERIAL BLOOD GAS pH 7.48 (7.35-7.45)
[2018-09-27 06:01] LABS: MEAN CELL VOLUME 99 fl (80.0-100.0); MEAN CORPUSCULAR HGB CONC 32 g/dl (33.0-37.0); MEAN PLATELET VOLUME 12.3 fl (7.4-10.4); PLATELET COUNT 72 K/mm3 (130-400); RED BLOOD COUNT 2.63 M/mm3 (4.10-5.30); REDCELL DISTRIBUTION WIDTH-CV 14.9 % (11.5-14.5)
[2018-09-27 06:03] LABS: HEMATOCRIT 25.9 % (37.0-47.0); HEMOGLOBIN 8.3 g/dl (12.5-16.0); MEAN CORPUSCULAR HEMOGLOBIN 32 pg (27.0-31.0)
[2018-09-27 06:06] LABS: CALCIUM 8.2 mg/dL (8.4-10.2); CREATININE, serum 0.41 (0.52-1.25); POTASSIUM 3.6 mmol/L (3.4-5.0)
--- NOTE | 2018-09-27 07:38 | NUR ---
Bedside report recieved from ANDREW Wallis. Patient son at bedside and participates. Questions are encouraged, asked, and answered. ETT and OG tube size and placement are verified. YEE PICC visualized without noted complications. IV gtt rates and concentrations confirmed. Barrett with positive output noted. Patient is repositioned in bed at this time. Coccyx wound with mepilex dressing in place and moderate drainage noted. Bed in low and locked position, call light within reach, rails up x3, 2pt soft wrist restraints continue without complication. Care assumed.
--- NOTE | 2018-09-27 07:38 | NUR ---
Bedside report given to ANDREW Duke
[2018-09-27 09:45] LABS: BAND 6 % (0-10); EOSINOPHIL 2 % (0-4); LYMPHOCYTE 3 % (20.0-51.0); NEUTROPHILS 76 % (42.0-75.2); OVALOCYTES 1+; PLATELET ESTIMATE DECREASED (NORMAL)
--- NOTE | 2018-09-27 10:20 | NUR ---
Dr. Starr rounds at this time and discusses POC with family. No new orders recieved.
--- NOTE | 2018-09-27 10:40 | NUR ---
Patient with intermittent desaturations with correlating pleth. Upon assessment ETT placement and patency are verified. Suctioning completed with scant prduction of secretions. No episode is sustained longer that approximately 7 seconds and patient's saturations return to 95% or greater without increase in FiO2. All other vital signs and assessment remain unchanged. Will continue to monitor.
--- NOTE | 2018-09-27 10:55 | NUR ---
Dr. Fisher rounds at this time. Patient with new shaking to RUE correlating with intermittent desaturations on monitor with accurate pleth. with VORB for ativan and keppra. See order takers supervisor and ANDREIA for administration. Care ongoing.
--- NOTE | 2018-09-27 11:12 | NUR ---
Dr. Hernandez rounds on patient at this time. Orders as entered CPOE. Family meeting takes place with this RN, patient son Turner (DPOA) and daughter in law Biju.
--- NOTE | 2018-09-27 20:15 | NUR ---
Patient assessment completed and charted at this time, please see documentation for details. Patient tolerating ventilator well at this time, no issues to report. Had lengthy discussion with patient DIL at bedside about any concerns and patient wishes. States she is happy with everything going on and they are coming to terms with everything. Will continue to monitor.
[2018-09-28] VITALS (911 sets, daily range): BP systolic 104–133; BP diastolic 66–79; PULSE 92–95; TEMP 97.8–99.5; O2SAT 41–100
--- NOTE | 2018-09-28 05:50 | NUR ---
Bedside report received from ANDREW Cruz.
[2018-09-28 05:54] LABS: ARTERIAL BLD GAS O2 SATURATION 99.1 % (92-100); ARTERIAL BLD GAS TCO2 CT 20.4; ARTERIAL BLOOD GAS BASE EXCESS -2.7 (-2-2); ARTERIAL BLOOD GAS HCO3 19.6 meq/L (22-26); ARTERIAL BLOOD GAS PCO2 26.2 mmHg (35-45); ARTERIAL BLOOD GAS pH 7.49 (7.35-7.45)
[2018-09-28 05:55] LABS: ARTERIAL BLOOD GAS PO2 383.3 mmHg (80-100)
--- NOTE | 2018-09-28 06:20 | NUR ---
Patient continued to have liquid stool with each turn. Rectal tube placed.
--- NOTE | 2018-09-28 07:00 | NUR ---
Assessment complete, patient remains intubated, opens eyes but not on command, does not track with eyes, does not follow any commands. AM care complete.
[2018-09-28 07:42] LABS: HEMOGLOBIN 8.7 g/dl (12.5-16.0); MEAN CELL VOLUME 96 fl (80.0-100.0); MEAN CORPUSCULAR HEMOGLOBIN 32 pg (27.0-31.0); MEAN CORPUSCULAR HGB CONC 34 g/dl (33.0-37.0); MEAN PLATELET VOLUME 12.7 fl (7.4-10.4); PLATELET COUNT 102 K/mm3 (130-400); RED BLOOD COUNT 2.72 M/mm3 (4.10-5.30); REDCELL DISTRIBUTION WIDTH-CV 14.7 % (11.5-14.5)
[2018-09-28 08:01] LABS: ALBUMIN 2.4 gm/dL (3.5-5.0); BILIRUBIN,TOTAL 0.2 mg/dL (0.0-1.0); CALCIUM 8.4 mg/dL (8.4-10.2); CREATININE, serum 0.34 (0.52-1.25); MAGNESIUM 2.1 mg/dL (1.6-2.3); PHOSPHOROUS 3.2 mg/dL (2.5-4.5); POTASSIUM 3.6 mmol/L (3.4-5.0); TOTAL PROTEIN 5.6 gm/dL (6.4-8.2)
[2018-09-28 08:08] LABS: PRE ALBUMIN 13.8 mg/dL (17.6-36.0)
[2018-09-28 08:12] LABS: EOSINOPHIL 3 % (0-4); LYMPHOCYTE 15 % (20.0-51.0); NEUTROPHILS 76 % (42.0-75.2); PLATELET ESTIMATE NORMAL (NORMAL)
--- NOTE | 2018-09-28 08:30 | NUR ---
PICC intact right upper arm. With sterile technique right upper arm PICC dressing change done with insertion site cleansed with ChloraPrep 1, chlorhexidine impregnated disc applied, skin prep, StatLock, and Tegaderm applied. No signs or symptoms of IV complications noted.
--- NOTE | 2018-09-28 09:45 | NUR ---
RT's here for EEG.
--- NOTE | 2018-09-28 10:54 | NUR ---
Follow up visit today. Pt is having an EEG done. Report from Lisa Senior RN. Pt is now DNR. Her son and daughterin law are in finals and their schedule is hard to predict. and sister are expected to arrive tomorrow. No current plan for trach and peg placement today.
--- NOTE | 2018-09-28 11:12 | NUR ---
PT in working with patient.
--- NOTE | 2018-09-28 13:00 | NUR ---
Patient moves left foot, not on command.
--- NOTE | 2018-09-28 19:04 | NUR ---
Bedside report given to ANDREW Cruz.
[2018-09-29] VITALS (854 sets, daily range): BP systolic 111–142; BP diastolic 68–76; PULSE 81–104; TEMP 97.5–99.1; O2SAT 85–100
[2018-09-29 05:27] LABS: ARTERIAL BLD GAS O2 SATURATION 95.8 % (92-100); ARTERIAL BLD GAS TCO2 CT 20.1; ARTERIAL BLOOD GAS BASE EXCESS -3.2 (-2-2); ARTERIAL BLOOD GAS HCO3 19.3 meq/L (22-26); ARTERIAL BLOOD GAS PCO2 26.3 mmHg (35-45); ARTERIAL BLOOD GAS pH 7.48 (7.35-7.45)
[2018-09-29 06:24] LABS: HEMATOCRIT 22.4 % (37.0-47.0); HEMOGLOBIN 8.6 g/dl (12.5-16.0); MEAN CELL VOLUME 100 fl (80.0-100.0); MEAN CORPUSCULAR HEMOGLOBIN 38 pg (27.0-31.0); MEAN CORPUSCULAR HGB CONC 38 g/dl (33.0-37.0); PLATELET COUNT 135 K/mm3 (130-400); RED BLOOD COUNT 2.24 M/mm3 (4.10-5.30)
--- NOTE | 2018-09-29 07:00 | NUR ---
Bedside report received from ANDREW Cruz.
[2018-09-29 07:18] LABS: CALCIUM 8.6 mg/dL (8.4-10.2); CREATININE, serum 0.31 (0.52-1.25); POTASSIUM 3.4 mmol/L (3.4-5.0)
[2018-09-29 07:22] LABS: BAND 3 % (0-10); EOSINOPHIL 3 % (0-4); LYMPHOCYTE 17 % (20.0-51.0); NEUTROPHILS 75 % (42.0-75.2); PLATELET ESTIMATE NORMAL (NORMAL)
[2018-09-29 07:24] LABS: ANISOCYTOSIS 1+; POLYCHROMASIA 1+
--- NOTE | 2018-09-29 07:30 | NUR ---
Assessment complete, patient with eyes open at times, does not follow commands, moves left foot occasionally. Heel protectors in place, AM care complete, patient appears comfortable at this time.
--- NOTE | 2018-09-29 09:04 | NUR ---
PT in working with patient.
--- NOTE | 2018-09-29 09:12 | NUR ---
PT here to see patient.
--- NOTE | 2018-09-29 09:38 | NUR ---
PT working with patient.
--- NOTE | 2018-09-29 10:35 | NUR ---
OT in working with patient.
--- NOTE | 2018-09-29 11:37 | NUR ---
Follow up visit with pt asleep. is expected today to visit. No new changes.
--- NOTE | 2018-09-29 16:00 | NUR ---
Patient awake, alert, following commands, wiggling toes when asked, nodding head to yes/no questions.
--- NOTE | 2018-09-29 18:00 | NUR ---
Patient and son at bedside.
--- NOTE | 2018-09-29 19:15 | NUR ---
Bedside report given to ANDREW Wallis.
--- NOTE | 2018-09-29 19:20 | NUR ---
Bedside report received from ANDREW Gonzalez. Lines reviewed. Transfer of care at this time
--- NOTE | 2018-09-29 20:00 | NUR ---
Assessment complete. Patient resting in bed on the ventilator. No signs of pain or distress. Vitals are stable. Patient is having a large amount of secretions causing her to drool. Suction provided. Assessment reveals coarse lung sounds with diminished bases. Heart rate and rhythm regular, normal sounds. Bowel sounds are active. Both urinary catheter and rectal tube are flowing and free of kinds or twists. Patient continues to have edema in the upper extremities as well as genitalia and dependent edema. Son, Turner, is at bedside. No further needs at this time. Will continue to monitor. Call light within reach.
[2018-09-30] VITALS (824 sets, daily range): BP systolic 114–130; BP diastolic 70–81; PULSE 77–91; TEMP 98.1–99.8; O2SAT 85–100
--- NOTE | 2018-09-30 | NUR ---
Patient sleeping at this time, no signs of pain or distress. Assessment complete. Patient opens eyes to name and attempts to squeeze hands when asked, both hands are quite weak. Lung sounds are clear with diminished bases. All other findings remain the same as previous exam. No further needs at this time. Will continue to monitor.
--- NOTE | 2018-09-30 04:00 | NUR ---
Patient asleep on the vent. No signs of distress or pain. Patient opens eyes to name. Continues to attempt to squeeze hands when asked, but still very weak on both sides. Patient will wiggle toes on left foot when asked, right foot continues to have no movement. Assessment complete. Lungs are coarse and diminished in the bases and clear in the upper lobes. All other findings remain the same as previous exam. Vitals remain stable. No further needs at this time. Will continue to monitor. Call light within reach
[2018-09-30 05:57] LABS: MEAN CELL VOLUME 100 fl (80.0-100.0); MEAN CORPUSCULAR HGB CONC 34 g/dl (33.0-37.0); MEAN PLATELET VOLUME 11.4 fl (7.4-10.4); PLATELET COUNT 159 K/mm3 (130-400); RED BLOOD COUNT 2.54 M/mm3 (4.10-5.30); REDCELL DISTRIBUTION WIDTH-CV 15.9 % (11.5-14.5)
[2018-09-30 05:59] LABS: HEMATOCRIT 25.4 % (37.0-47.0); HEMOGLOBIN 8.5 g/dl (12.5-16.0); MEAN CORPUSCULAR HEMOGLOBIN 33 pg (27.0-31.0)
[2018-09-30 06:10] LABS: ARTERIAL BLD GAS O2 SATURATION 97.9 % (92-100); ARTERIAL BLD GAS TCO2 CT 19.5; ARTERIAL BLOOD GAS BASE EXCESS -3.7 (-2-2); ARTERIAL BLOOD GAS HCO3 18.7 meq/L (22-26); ARTERIAL BLOOD GAS PCO2 25.4 mmHg (35-45); ARTERIAL BLOOD GAS PO2 118.5 mmHg (80-100); ARTERIAL BLOOD GAS pH 7.49 (7.35-7.45)
[2018-09-30 06:12] LABS: CALCIUM 8.5 mg/dL (8.4-10.2); CREATININE, serum 0.28 (0.52-1.25); POTASSIUM 3.4 mmol/L (3.4-5.0)
[2018-09-30 06:45] LABS: BAND 2 % (0-10); LYMPHOCYTE 9 % (20.0-51.0); NEUTROPHILS 86 % (42.0-75.2); PLATELET ESTIMATE NORMAL (NORMAL)
--- NOTE | 2018-09-30 07:15 | NUR ---
Bedside shift report received from ANDREW Wallis. Patient is sleeping and ventilated but eyes open spontaneously. Patient is calm and in no apparent distress. Full assessment completed and documented. Call light placed within reach. Bed lowered to lowest position. Unable to complete CAM and suicidal ideation assessment at this time.
--- NOTE | 2018-09-30 07:35 | NUR ---
Bedside report given to ANDREW Gonzalez. All lines and tube reviewed. Transfer of care at this time.
--- NOTE | 2018-09-30 09:26 | NUR ---
No family at bedside at this time. Pt appears to be sleeping at this time.
--- NOTE | 2018-09-30 13:02 | NUR ---
Patient has experienced no significant changes at this time. Patient remains ventilated and in no apparent distress at this time.
--- NOTE | 2018-09-30 15:05 | NUR ---
Turner, son and TIMMY, at bedside. Dr. Coy notified of son's arrival. Dr. Coy to have further discussion of plan of care for patient.
--- NOTE | 2018-09-30 16:29 | NUR ---
Patient has no significant changes at this time. Patient remains ventilated and does not appear to be in any distress.
--- NOTE | 2018-09-30 19:37 | NUR ---
Bedside shift report given to ANDREW Wallis. Patient is awake with eyes open and in no apparent distress. Patient remains ventilated and unable to follow commands at this time. Call light placed within reach. Bed in lowest position. Chalino, [id number], at bedside during shift report.
--- NOTE | 2018-09-30 19:38 | NUR ---
Bedside report received from ANDREW Gonzalez. All lines and tubes reviewed. Transfer of care at this time.
--- NOTE | 2018-09-30 20:00 | NUR ---
Assessment complete. Patient resting in bed on the ventilator, no signs of distress. Face appears tense, but body is relaxed. PATY Ivy, at the bedside. Patient's lungs have loud rhonchi in all young with diminished bases. Only slightly improves with suctioning. Bowel sounds are active. Edema is improving in the left arm, but remains taunt in the right arm. Patient is producing urine per Barrett and stool per rectal tube. Wound dressing is intact. Patient is tolerating tube feedings well with acceptable residuals. Patient has no further needs at this time. Will continue to monitor. call light within reach.
[2018-10-01] VITALS (552 sets, daily range): BP systolic 115–128; BP diastolic 72–81; PULSE 89–96; TEMP 97.5–99; O2SAT 78–100
--- NOTE | 2018-10-01 | NUR ---
Assessment complete. Patient is alert and looking around the room, no signs of distress. Patient does look more uncomfortable than she did earlier in the shift. She is now grimacing and her extremities are more rigid, she is coughing against the vent. Fentanyl to be provided. Lungs are clear of rhonchi, but still sound coarse in all young and diminished in the bases. All other findings remain the same as previous exam. Patient does appear like she is starting to show some orbital edema, especially to her left lower eyelid. Will continue to watch for this. Patient is not follows commands at this time and does not squeeze hands when she is asked. She continues to have trace movement in her arms and left leg, but right leg has not been witnessed moving by this nurse. Patient repositioned for comfort. No further needs at this time. Will continue to monitor. Call light within reach.
--- NOTE | 2018-10-01 04:00 | NUR ---
Patient resting on the ventilator. No signs of distress or pain. Patient is alert upon entrance into the room. She has started to track movement more, but her eyes still drift off after a short while. Patient is able to squeeze hands when asked, but they are very weak and she is unable to do them simultaneously. Patient is now able to move both feet, but she moves the left one far more. Assessment reveals clear lung sounds with diminished bases. All other findings remain the same as previous exams. Repositioned for comfort. Will continue to monitor. Call light within reach.
[2018-10-01 05:12] LABS: BASO % 0.5 % (0.0-2.0); EOS # 0.1 (0.0-0.7); EOS % 2.2 % (0-4.0); GRAN # 2.6 (1.4-6.5); GRAN % 70.7 % (42.2-75.2); LYMPH # 0.6 (1.2-3.4); LYMPH % 17.1 % (20.0-51.0); MEAN CELL VOLUME 97 fl (80.0-100.0); MEAN CORPUSCULAR HGB CONC 31 g/dl (33.0-37.0); MONO # 0.3 (0.1-0.6); MONO % 8.1 % (1.7-9.3); PLATELET COUNT 190 K/mm3 (130-400); RED BLOOD COUNT 2.89 M/mm3 (4.10-5.30); REDCELL DISTRIBUTION WIDTH-CV 16.1 % (11.5-14.5)
[2018-10-01 05:13] LABS: HEMATOCRIT 28.1 % (37.0-47.0); HEMOGLOBIN 8.8 g/dl (12.5-16.0); MEAN CORPUSCULAR HEMOGLOBIN 30 pg (27.0-31.0)
[2018-10-01 05:20] LABS: ARTERIAL BLD GAS O2 SATURATION 97.9 % (92-100); ARTERIAL BLD GAS TCO2 CT 21.3; ARTERIAL BLOOD GAS HCO3 20.5 meq/L (22-26); ARTERIAL BLOOD GAS PCO2 27.5 mmHg (35-45); ARTERIAL BLOOD GAS PO2 118.5 mmHg (80-100); ARTERIAL BLOOD GAS pH 7.49 (7.35-7.45)
[2018-10-01 05:22] LABS: CALCIUM 8.7 mg/dL (8.4-10.2); CREATININE, serum 0.29 (0.52-1.25); PHOSPHOROUS 3.8 mg/dL (2.5-4.5); POTASSIUM 3.5 mmol/L (3.4-5.0)
--- NOTE | 2018-10-01 05:55 | NUR ---
Patient placed on smartcare at this time.
--- NOTE | 2018-10-01 06:15 | NUR ---
PT ON SMART CARE ESTEFANÍA WELL NO DISTRES NOTED AT THIS TIME
--- NOTE | 2018-10-01 07:20 | NUR ---
Dr. Fisher rounds at this time. No new orders recieved.
--- NOTE | 2018-10-01 07:31 | NUR ---
Bedside report given to ANDREW Duke. Lines and tubes reviewed. Transfer of care at this time.
--- NOTE | 2018-10-01 07:31 | NUR ---
Bedside report recieved from ANDREW Wallis. Patient resting in bed and ventilated. ETT and OG tube placement verfied. YEE PICC uncomplicated and locked at this time. Barrett with positive UO. Dressing to sacrum intact with moderate drainage noted. Rectal tube with positive output. Bed in low and locked position, call light within reach, rails upx3, bed alarm armed. Care assumed.
--- NOTE | 2018-10-01 07:45 | NUR ---
Dr. Hernandez rounds at this time. Orders as entered CPOE.
--- NOTE | 2018-10-01 09:26 | NUR ---
Pt with eyes open at this visit. Reacts to voice and then looks away. No family in room at this time. Understand from staff that potential extubation is planned for this afternoon. I will be available.
--- NOTE | 2018-10-01 10:00 | NUR ---
Dr. Coy rounds at this time. Orders as entered CPOE.
--- NOTE | 2018-10-01 10:15 | NUR ---
Dr. Fisher rounds at this time. No new orders recieved.
--- NOTE | 2018-10-01 16:35 | NUR ---
Daughter in law Biju provides hair wash for patient at this time.
--- NOTE | 2018-10-01 17:00 | NUR ---
This RN discusses with family their desire for POC. ANDREW David is present and damian Hernandezlaborer [facility] house is present. Family expresses desire for patient to be extubated this evening. This RN clarifies DNR/DNI status and goals for care. Family communicates that they would like to see patient extubated and if she does well continue with current IV therapies and tx. If her status/function decline they support her transition to comfort care. Will contact MD. Care ongoing.
--- NOTE | 2018-10-01 17:13 | NUR ---
Dr. Hernandez contacted regarding family desire to extubate patient this evening. MD confirms patient's DNR/DNI status and provides TORB to this RN to extubate patient at this time.
--- NOTE | 2018-10-01 17:15 | NUR ---
Dr. Coy called and updated to POC. He is agreeable to extubation. No further orders recieved.
--- NOTE | 2018-10-01 17:35 | NUR ---
Patient extubated by this RN and RT Mar following TORB by Dr. Hernandez. Family at bedside. Oral and ETT suctioning performed prior. OG tube discontinued with ETT. Patient placed on 4L O2 per OM. Care ongoing.
--- NOTE | 2018-10-01 18:02 | NUR ---
PT EXTUBATED TO 4L OXYMASK AT 1735. PT SUCTIONED PRE AND POST SUCTION. ESTEFANÍA WELL. BLBS COARSE AND EQUAL. NO STRIDOR NOTED. SPO2 100%, HR 96, RR 28. NO DISTRESS NOTED.
--- NOTE | 2018-10-01 19:15 | NUR ---
Bedside report received from ANDREW Duke
--- NOTE | 2018-10-01 20:00 | NUR ---
Patient resting in bed with oxymask on, frequent coughing to clear secretions. Biju at the bedside. Assessment complete, reveals rhonchi and coarse crackles in all young with diminished bases. Patient does not have a forceful cough, so she is having trouble with the secretions, provided some oral suctioning with minimal improvement. Bowel sounds are active, heart rate and rhythm are regular. She is tachypneic ranging from 22-30 breaths per minute. Edema remains unchanged. Patient's vitals have been stable. No further needs at this time. Will continue to monitor. Call light within reach.
[2018-10-02] VITALS (407 sets, daily range): BP systolic 122–169; BP diastolic 71–81; PULSE 84–117; TEMP 97.6–98.9; O2SAT 91–100
--- NOTE | 2018-10-02 | NUR ---
Patient alert resting in bed. Patient's eyes are wide open and looking around, but does not make eye contact. Patient looks towards direction of noise, but is not tracking movement. Assessment complete. Patient does squeeze both of her hands independently now when asked, but movement is very slow. grasps are very weak. Patient continues to have secretions causing her to cough frequently. Lung sounds have changed some with coarse upper lobes and rhonchi and diminished in the bases. Patient is now taking more shallow breaths than previously and at a faster rate. Patient is taking 26-36 breaths per minute now. All other findings remain unchanged. All other Vitals remain stable. Son is at bedside. No further needs at this time. Will continue to monitor. Call light within reach.
--- NOTE | 2018-10-02 04:00 | NUR ---
Patient in bed and remains alert with eyes open. Intermittently groans to clear secretions. Patient has yet to have any productive sputum. Assessment complete. Patient's lungs have loud rhonchi in all young with diminished bases. Patient is more tachypneic than previously with a rate of 30-38 breaths per minute. Will discuss with son her current status. All other findings remain the same as previous exam. All other vitals remain stable. No further needs at this time. Will continue to monitor. Call light within reach.
--- NOTE | 2018-10-02 05:00 | NUR ---
Discussed with Turner, son and TIMMY, the patient's change in status. Spoke with him about air hunger and the increase in rhonchi in her lungs. Let him know Icould contact the physician to get an order for Ativan or something to help with the air hunger. Turner was agreeable to this. Will contact PEGGY
--- NOTE | 2018-10-02 06:23 | NUR ---
Patient appears much more comfortable now after receiving morphine. She is now only breathing 22-26 breaths a minute and is not having heavy chest movement. Will continue to monitor. Call light within reach.
[2018-10-02 06:30] LABS: ALBUMIN 2.9 gm/dL (3.5-5.0); BILIRUBIN,TOTAL 0.3 mg/dL (0.0-1.0); CALCIUM 9.1 mg/dL (8.4-10.2); CREATININE, serum 0.33 (0.52-1.25); MAGNESIUM 2.1 mg/dL (1.6-2.3); PHOSPHOROUS 4.9 mg/dL (2.5-4.5); POTASSIUM 3.4 mmol/L (3.4-5.0); TOTAL PROTEIN 6.7 gm/dL (6.4-8.2)
[2018-10-02 06:48] LABS: BASO % 0.5 % (0.0-2.0); EOS % 0.7 % (0-4.0); GRAN # 3.1 (1.4-6.5); GRAN % 73.5 % (42.2-75.2); HEMATOCRIT 27.8 % (37.0-47.0); HEMOGLOBIN 9.1 g/dl (12.5-16.0); LYMPH # 0.7 (1.2-3.4); LYMPH % 16.2 % (20.0-51.0); MEAN CELL VOLUME 100 fl (80.0-100.0); MEAN CORPUSCULAR HEMOGLOBIN 33 pg (27.0-31.0); MEAN CORPUSCULAR HGB CONC 33 g/dl (33.0-37.0); MEAN PLATELET VOLUME 11.3 fl (7.4-10.4); MONO # 0.3 (0.1-0.6); MONO % 8.1 % (1.7-9.3); PLATELET COUNT 204 K/mm3 (130-400); RED BLOOD COUNT 2.77 M/mm3 (4.10-5.30); REDCELL DISTRIBUTION WIDTH-CV 16.5 % (11.5-14.5)
--- NOTE | 2018-10-02 07:15 | NUR ---
Bedside report received from ANDREW Wallis.
--- NOTE | 2018-10-02 07:26 | NUR ---
Bedside report given to ANDREW Gonzalez.
--- NOTE | 2018-10-02 10:02 | NUR ---
Pt into work with patient.
--- NOTE | 2018-10-02 10:50 | NUR ---
Dressing change to coccyx.
--- NOTE | 2018-10-02 11:34 | NUR ---
Patient taken to MRI via stretcher.
--- NOTE | 2018-10-02 12:15 | NUR ---
Report called to ANDREW Paul.
--- NOTE | 2018-10-02 13:20 | NUR ---
Patient taken to 356, with all belongings.
--- NOTE | 2018-10-02 14:00 | NUR ---
Win arrived to the Medical floor at this time from ICU, she is alert/ unable to assess orientation, she is unable to follow commands or answer quesitons appropriately at this time, family present in the room, position changed, Speech therapy here to do speech eval
[2018-10-02 16:53] LABS: ALBUMIN 3.1 gm/dL (3.5-5.0); BILIRUBIN,TOTAL 0.4 mg/dL (0.0-1.0); CALCIUM 9.5 mg/dL (8.4-10.2); CREATININE, serum 0.34 (0.52-1.25); MAGNESIUM 2.1 mg/dL (1.6-2.3); PHOSPHOROUS 4.8 mg/dL (2.5-4.5); POTASSIUM 3.9 mmol/L (3.4-5.0); TOTAL PROTEIN 7.1 gm/dL (6.4-8.2)
[2018-10-02 17:00] LABS: PRE ALBUMIN 16.9 mg/dL (17.6-36.0)
--- NOTE | 2018-10-02 17:50 | NUR ---
Patient failed speech swallow eval, I notified who instructed me to discuss nutrition options (NG tube feeds vs. TPN) with the son/DPOA, TIMMY Tompkins decided that for now TPN would be the best option as he did not want to cause his mom any pain by placing NG tube, spoke with the Infusion Rn and TPN orders placed
--- NOTE | 2018-10-02 20:30 | NUR ---
RT IN SEEING PT AT THIS TIME STATED THAT HER O2 WAS IN THE 70'S. RT TURNED UP TO 8L HIGH FLOW VIA OXIMASK SATS WENT UP TO 80'S. PT WAS HAVING A LOT OF AIR HUNGER. THIS NURSE ADMINSTERED PRN DOSE OF MORPHINE AT THIS TIME.
--- NOTE | 2018-10-02 22:15 | NUR ---
PT STILL HAVING AIR HUNGER, HAS LESSONED IN SEVERITY. PT GRIMISING WHEN MOVING THIS NURSE ADMINSTERED ANOTHER DOSE OF PRN MORPHINE AT THIS TIME. THIS NURSE WENT TO ADMINISTER IV KEPPRA, RED PORT ON PICC LINE NOT FLUSING AND NOT DRAWING BLOOD BACK, THIS NURSE HAD JOANN TIPPING MACHINE OPERATOR AUTOMATIC ATTEMPT, JOANN WAS UNABLE TO GET LINE TO WORK. WILL PASS ON TO DAYSHIFT TO HAVE THEM TRY A DECLOTTING AGENT TOMORROW, PER JOANN. THIS NURSE STOPPED TPN, FLUSHED LINE THEN ADMINISTERED KEPPRA THEN FLUSHED LINE PRIOR RESTARTING TPN BACK INTO PURPLE PORT.
--- NOTE | 2018-10-03 02:50 | NUR ---
PT HAS BEEN HAVING AIR HUNGER AND GRIMICING WITH MOVEMENT. ADINISTERED PRN MORPHINE. THIS NURSE WENT IN TO REEVALUATE PT STATUS. RT WAS IN SEEING PT THIS TIME. REPORTED THAT PT WAS 95% O2 SAT AND HER LUNG SOUNDS WHERE SOUNDING BETTER THEN EARLIER VISIT. PT RESTING WELL. THIS NURSE ADMINSTERED A STRONGER DOSE OF THE MORPHINE (2MG) AT 0035 AND RE POSITIONED PT. PT LAYIN GIN BED WITH EYES CLOSED, AND APPEARS MORE COMFORTABLE AT THIS TIME THEN IN EARLIER HOURS.
--- NOTE | 2018-10-03 03:57 | NUR ---
PT LAYING IN BED WITH INCREASED RESPIRATIONS, EYES WIDE OPEN. PT ALMOST GASPING. OXIMASK STILL IN PLACE. THIS NURSE ADMINSTERED PRN MORPHNE AND REPOSITIONED PT AT THIS TIME.
[2018-10-03 04:54] VITALS: BP 145/75; PULSE 122; TEMP 97.9
[2018-10-03 06:44] LABS: CALCIUM 9.2 mg/dL (8.4-10.2); CREATININE, serum 0.29 (0.52-1.25); POTASSIUM 3.6 mmol/L (3.4-5.0)
[2018-10-03 07:17] VITALS: BP 136/76; PULSE 122; TEMP 98.2
--- NOTE | 2018-10-03 07:25 | NUR ---
Pt in bed, no family present, eyes open mouth open. Pt's respirations unlabored - oxymask in place. Pt unable to follow commands. Turn q2hrs order informed to ENGINEERING DOCUMENT CONTROL CLERK to assist with turns - facial grimmace when turned for asssessment - dressing in place on coccyx. Trend in tachycardia noted - will inform MD on morning rounds. Call light within reach, television on, room door open, bed alarm on.
[2018-10-03 08:50] VITALS: PULSE 133
--- NOTE | 2018-10-03 09:08 | NUR ---
MD Meliton at bedside: assessment findings reported including: unable to follow commands, HR treding upward now in the 130's. MD Meliton is thinking pt will need to be transfered back to ICU if family is declining comfort care/hospice. 0911: Turner son called, no answer, message left with unit phone number to call back as soon as possible to discuss options.
--- NOTE | 2018-10-03 10:56 | NUR ---
Family is present for meeting. MD David notifed - MD Meliton on unit
[2018-10-03 11:13] VITALS: BP 132/77; PULSE 87; TEMP 98.1
[2018-10-03] MEDS ORDERED: ALBUTEROL0.83 MG/ML IH (15:03)
[2018-10-03] MEDS ORDERED: TYLENOL 325MG325 MG PO (15:04)
[2018-10-03] MEDS ORDERED: TRANSDERM-0.5 MG/21 TD (15:05)
[2018-10-03] MEDS ORDERED: DULCOLAX S10 MG/SUPP RC (15:05)
[2018-10-03] MEDS ORDERED: FLEET ENEM1 BOT/133 RC (15:05)
[2018-10-03] MEDS ORDERED: ATIVAN 1MG T1 MG/TAB PO (15:06)
[2018-10-03] MEDS ORDERED: ROXANOL 20MG20 MG/ML SL (15:06)
[2018-10-03] MEDS ORDERED: ARTIFICIAL TEAR15 M7 OP (15:06)
[2018-10-03 15:10] VITALS: BP 132/77; PULSE 87; TEMP 98.1
--- NOTE | 2018-10-03 15:45 | NUR ---
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 Report called to ANDREW Rivera at [facility] - questions invited and answered - notified pt has PICC/Barrett/Rectal Tube in place.
--- NOTE | 2018-10-03 16:06 | NUR ---
The patient's nurse informed MIKE that the family was interested in hospice for the patient. MIKE met with the family and they chose the [facility]. MIKE faxed referral. Barry at the [facility] reports they can accept the patient for hospice care and the patient is to discharge today, 10/03. MIKE contacted [facility] for transport. MIKE faxed all information to the [facility]. There are no additional needs at this time.
== END 2018-10-03 16:00 | disposition hospice, inpatient (51) | DRG 853 ==
LOC: COL.ER 17:02 → ICU 19:11 → COL.ER 19:11 → MEDICAL 10-02 13:53
PROVIDERS: Emergency Medicine; Family Medicine; Hospitalist; Internal Medicine; Internal Medicine Pulmonary Disease; Nurse Practitioner Family; ADMIT Internal Medicine
PROC: 0WCQ8ZZ Extirpation of Matter from Respiratory Tract, Via Natural or Artificial Opening Endoscopic (ICD-10-PCS; principal; 2018-09-20)
PROC: 5A1955Z Respiratory Ventilation, Greater than 96 Consecutive Hours (ICD-10-PCS; 2018-09-20)
PROC: 02HV33Z Insertion of Infusion Device into Superior Vena Cava, Percutaneous Approach (ICD-10-PCS; 2018-09-20)
PROC: 0BH17EZ Insertion of Endotracheal Airway into Trachea, Via Natural or Artificial Opening (ICD-10-PCS; 2018-09-20)
PROC: 0BBB8ZX Excision of Left Lower Lobe Bronchus, Via Natural or Artificial Opening Endoscopic, Diagnostic (ICD-10-PCS; 2018-09-23)
PROC: 0BDB8ZX Extraction of Left Lower Lobe Bronchus, Via Natural or Artificial Opening Endoscopic, Diagnostic (ICD-10-PCS; 2018-09-23)
DX: A41.9 Sepsis, unspecified organism (principal); J96.01 Acute respiratory failure with hypoxia; J69.0 Pneumonitis due to inhalation of food and vomit; R65.21 Severe sepsis with septic shock; G93.41 Metabolic encephalopathy; J98.11 Atelectasis; E87.1 Hypo-osmolality and hyponatremia; G91.2 (Idiopathic) normal pressure hydrocephalus; E44.0 Moderate protein-calorie malnutrition; E87.0 Hyperosmolality and hypernatremia; T17.890A Other foreign object in other parts of respiratory tract causing asphyxiation, initial encounter; G40.109 Localization-related (focal) (partial) symptomatic epilepsy and epileptic syndromes with simple partial seizures, not intractable, without status epilepticus; D69.6 Thrombocytopenia, unspecified; Z98.2 Presence of cerebrospinal fluid drainage device; F03.90 Unspecified dementia, unspecified severity, without behavioral disturbance, psychotic disturbance, mood disturbance, and anxiety; E86.0 Dehydration; Z86.718 Personal history of other venous thrombosis and embolism; L89.150 Pressure ulcer of sacral region, unstageable; D64.9 Anemia, unspecified; B37.3 Candidiasis of vulva and vagina; Z68.23 Body mass index [BMI] 23.0-23.9, adult; D70.9 Neutropenia, unspecified; Z66 Do not resuscitate; Z51.5 Encounter for palliative care; R91.8 Other nonspecific abnormal finding of lung field; N28.89 Other specified disorders of kidney and ureter; B95.61 Methicillin susceptible Staphylococcus aureus infection as the cause of diseases classified elsewhere
CPT/HCPCS: 99223-AI; 99231-AI; 99232-AI; 99233-AI; 99239; A9585; C1751; C1892; J0330; J0456; J1450; J1650; J1953; J2060; J2250; J2270; J2310; J2543; J2704; J2920; J2930; J3010; J3370; J3480; J7030; J7040; J7050; J7120; Q9967